=== PATIENT | male | born 1990 | race Hispanic/Latino ===

== ENCOUNTER 2023-10-31 19:12 | Inpatient (IN) | payer SELFPAY ==
[2023-10-31] MEDS ORDERED: levETIRAcetam 500 MG (5 mL) VIAL ONE (19:46)
[2023-10-31 19:54] LABS: #Basophils 0.1 thou/uL (0.0-0.2); #Eosinphils 0.6 thou/uL (0.0-0.7); #Monocytes 0.5 thou/uL (0.11-0.59); #Neutrophils 4.7 thou/uL (1.40-6.50); %Basophils 0.6 % (0.0-1.0); %Eosinophils 6.5 % (0.0-10.0); %Lymphocytes 35.1 % (21.0-51.0); %Monocytes 5.4 % (0.0-10.0); %Neutrophils 52.1 % (42.0-75.0); Hematocrit 44.9 % (42.0-52.0); Hemoglobin 16.2 g/dL (14.0-18.0); Mean Corpuscular HGB CONC 36.1 g/dL (32.0-36.0); Mean Corpuscular Hemoglobin 31.1 pg (27.0-31.0); Mean Corpuscular Volume 86.2 fl (78.0-98.0); Mean Platelet Volume 10.8 fL (7.4-10.4); Platelet Count 203 10x3/uL (130-400); RBC Distribution Width 12.3 % (11.5-14.5); Red Blood Cell (RBC) Count 5.21 mill/uL (4.70-6.10)
[2023-10-31 20:16] LABS: ALT (SGPT) 19 U/L (8-55); AST (SGOT) 19 U/L (5-34); Albumin 4.6 g/dL (3.5-5.0); Alkaline Phosphatase 64 U/L (40-110); Anion Gap 15 mmol/L (10-20); BUN (Urea Nitrogen) 13 mg/dL (8.9-20.6); Bilirubin, Total 0.3 mg/dL (0.2-1.2); Calc. Creatinine Clearance 0 mL/min (70-130); Calcium 8.9 mg/dL (7.8-10.44); Carbon Dioxide 20 mmol/L (22-29); Chloride 107 mmol/L (98-107); Estimated GFR 119; Globulin 3.2 g/dL (2.4-3.5); Glucose 114 mg/dL (70-105); Potassium 3.8 mmol/L (3.5-5.1); Protein, Total 7.8 g/dL (6.0-8.3); Sodium 138 mmol/L (136-145)
[2023-10-31] MEDS ORDERED: Calcium Carbonate 500 MG ChewTAB PO PRN (20:51)
[2023-10-31] MEDS ORDERED: Acetaminophen 325 MG TAB PO PRN (20:51)
[2023-10-31] MEDS ORDERED: Ondansetron ODT 4 MG TAB PO PRN (20:51)
[2023-10-31] MEDS ORDERED: Dexamethasone 10 MG/ML VIAL ONE (20:59)
[2023-10-31] MEDS ORDERED: Famotidine 20 MG TAB ONE (23:32)
[2023-10-31] MEDS: Famotidine 20 MG TAB PO SCH (23:36)
[2023-10-31 23:38] VITALS: BMI 24.9
[2023-11-01 05:32] LABS: #Neutrophils 5.3 thou/uL (1.40-6.50); %Lymphocytes 13.3 % (21.0-51.0); %Monocytes 0.5 % (0.0-10.0); %Neutrophils 85.9 % (42.0-75.0); Hematocrit 43.2 % (42.0-52.0); Hemoglobin 15.3 g/dL (14.0-18.0); Mean Corpuscular HGB CONC 35.4 g/dL (32.0-36.0); Mean Corpuscular Hemoglobin 30.9 pg (27.0-31.0); Mean Corpuscular Volume 87.3 fl (78.0-98.0); Mean Platelet Volume 10.9 fL (7.4-10.4); Platelet Count 209 10x3/uL (130-400); RBC Distribution Width 12.2 % (11.5-14.5); Red Blood Cell (RBC) Count 4.95 mill/uL (4.70-6.10); White Blood Cell (WBC) Count 6.2 10x3/uL (4.8-10.8)
[2023-11-01 05:51] LABS: Anion Gap 15 mmol/L (10-20); BUN (Urea Nitrogen) 14 mg/dL (8.9-20.6); Calc. Creatinine Clearance 154 mL/min (70-130); Calcium 8.7 mg/dL (7.8-10.44); Carbon Dioxide 22 mmol/L (22-29); Chloride 107 mmol/L (98-107); Estimated GFR 124; Glucose 133 mg/dL (70-105); Potassium 4.2 mmol/L (3.5-5.1); Sodium 140 mmol/L (136-145)
[2023-11-01] MEDS ORDERED: Dexamethasone 10 MG/ML VIAL ONE (07:55)
[2023-11-01] MEDS ORDERED: levETIRAcetam 500 MG (5 mL) VIAL ONE (07:55)
[2023-11-01] MEDS ORDERED: Famotidine 20 MG TAB ONE (07:56)
[2023-11-01] MEDS: Famotidine 20 MG TAB PO SCH ×2 (08:40→20:47)
[2023-11-01] MEDS: levETIRAcetam 500 MG (5 mL) VIAL SLOW IVP SCH ×2 (08:43→20:47)
[2023-11-01] MEDS ORDERED: Dexamethasone 4 mg/ml Vial SLOW IVP SCH (09:00)
[2023-11-02] MEDS: levETIRAcetam 500 MG (5 mL) VIAL SLOW IVP SCH (09:01)
[2023-11-02] MEDS: Famotidine 20 MG TAB PO SCH (09:02)
[2023-11-02 13:12] VITALS: BP 112/62; TEMP 97.9
[2023-11-04] MEDS ORDERED: FLU VACC QS2023-24(6MOS UP)/PF 60 MCG/0.5 ML SYRINGE IM ONE (09:00)
== END 2023-11-02 16:38 | disposition home or self-care (01) | DRG 100 ==
LOC: ERS 19:12 → ERHOLD 20:54 → 2SE 11-01 17:02
PROVIDERS: ADMIT Student in an Organized Health Care Education/Training Program; ATTEND Internal Medicine
PROC: 4A00X4Z Measurement of Central Nervous Electrical Activity, External Approach (ICD-10-PCS; principal; 2023-11-01)
DX: R56.9 Unspecified convulsions (principal); G93.6 Cerebral edema; G93.89 Other specified disorders of brain; Z79.899 Other long term (current) drug therapy; Z91.014 Allergy to mammalian meats
CPT/HCPCS: 36415; 70450; 70553; 80048; 80053; 84146; 85025; 93005; 95711; 95819; J1100; J1953

== ENCOUNTER 2024-04-02 08:20 | Outpatient (CLI) | payer OTHER | END 2024-04-02 08:21 | disposition home or self-care (01) | LOC: CT 08:20 | PROVIDERS: ATTEND Physician Assistant | DX: R51.9 Headache, unspecified (principal) | CPT/HCPCS: 70450 ==